=== PATIENT | male | born 1990 | race Caucasian/White ===

== ENCOUNTER 2021-05-19 13:42 | Emergency (ER) | payer SELFPAY ==
[~2021-05-19] VITALS: Ht 177.8 cm; Wt 111.1 kg
[~2021-05-19 13:42] MED LIST: MOTRIN800 MG PO; PRILOSEC40 MG; ZITHROMAX250 MG PO
[2021-05-19] MEDS ORDERED: Tobrex Ophth S2.5 ML OPH (15:56)
[2021-05-19] MEDS ORDERED: IBUPROFEN600 MG PO (15:56)
[2021-05-19] MEDS ORDERED: HYDROCODONE-AC1 EAC1 PO (15:59)
== END 2021-05-19 16:34 | disposition home or self-care (01) ==
LOC: ED 13:42
DX: H16.131 Photokeratitis, right eye (principal)